=== PATIENT | female | born 1950 | race Caucasian/White ===

== ENCOUNTER 2017-12-13 16:52 | Emergency (ER) | payer MEDICARE ==
[~2017-12-13] VITALS: Ht 149.9 cm; Wt 81.8 kg
[2017-12-13 16:55] VITALS: Ht 149.9 cm; Wt 81.8 kg
[2017-12-13] MEDS ORDERED: CATAPRES0.2 MG PO (17:03)
[2017-12-13] MEDS ORDERED: PRINIVIL20 MG (17:03)
[2017-12-13] MEDS ORDERED: SYMBICORT 16010.2 GM INH (17:04)
[2017-12-13] MEDS ORDERED: ZESTRIL20 MG PO (17:04)
[2017-12-13 17:28] LABS: BASOPHILS 0.4 % (0-2); EOSINOPHILS 1.5 % (0-7); HEMATOCRIT 46.1 % (36.0-48.0); HEMOGLOBIN 15.6 g/dL (12-16); IMMATURE GRANULOCYTES 0.4 % (0-5); LYMPHOCYTES 14.9 % (15-50); MCH 30.2 pg (26.0-34.0); MCHC 33.8 g/dL (31.0-37.0); MCV 89.2 fL (80.0-100.0); MEAN PLATELET VOLUME 10.9 fL (7.4-10.4); MONOCYTES 6.1 % (2-11); NEUTROPHILS 76.7 % (40-80); PLATELET COUNT 233 10x3/uL (130-400); RBC 5.17 10x6/uL (4.00-5.40); RDW 15.5 % (11.5-14.5); WBC 10.8 10x3/uL (4.8-10.8)
[2017-12-13 17:46] LABS: ALBUMIN 3.1 g/dL (3.4-5.0); ANION GAP 9.7 mmol/L (8-16); BILIRUBIN - TOTAL 0.41 mg/dL (0.2-1.3); CALCIUM 10.3 mg/dL (8.5-10.1); CARBON DIOXIDE 30.4 mmol/L (21.0-32.0); POTASSIUM - SERUM 4.1 mmol/L (3.5-5.1); PROTEIN - SERUM 7.5 g/dL (6.4-8.2)
[2017-12-13 18:59] LABS: APPEARANCE HAZY (CLEAR); COLOR DK YELLOW (YELLOW); GLUCOSE NEGATIVE (NEGATIVE); KETONE NEGATIVE (NEGATIVE); NITRITE POSITIVE (NEGATIVE); PROTEIN TRACE mg/dL (NEGATIVE)
[2017-12-13 19:00] LABS: BILIRUBIN NEGATIVE (NEGATIVE); UROBILINOGEN NORMAL (NORMAL); WHITE CELLS - URINE 25-50 /hpf (0-5)
[2017-12-13 19:01] LABS: BACTERIA MANY /hpf (NONE SEEN); RED CELLS - URINE 0-5 /hpf (0-5)
[2017-12-13] MEDS ORDERED: PHENERGAN25 M1 PO (20:15)
[2017-12-13] MEDS ORDERED: TYLENOL W/CODEI1 TAB PO (20:15)
[2017-12-13] MEDS ORDERED: MACROBID100 MG PO (20:15)
[2017-12-13 21:03] VITALS: BP 141/57
== END 2017-12-13 21:04 | disposition home or self-care (01) ==
LOC: D.ER 16:52
PROVIDERS: Emergency Medicine
DX: N39.0 Urinary tract infection, site not specified (principal); R10.9 Unspecified abdominal pain; E11.9 Type 2 diabetes mellitus without complications; I10 Essential (primary) hypertension; J44.9 Chronic obstructive pulmonary disease, unspecified; F17.200 Nicotine dependence, unspecified, uncomplicated

== ENCOUNTER 2020-05-07 18:24 | Emergency (ER) | payer MEDICARE, BC ==
[~2020-05-07] VITALS: Ht 149.9 cm; Wt 113.6 kg
[~2020-05-07 18:24] MED LIST: CATAPRES0.2 MG PO; MACROBID100 MG PO; PHENERGAN25 M1 PO; PRINIVIL20 MG; SYMBICORT 16010.2 GM INH; TYLENOL W/CODEI1 TAB PO; ZESTRIL20 MG PO
[2020-05-07 18:29] VITALS: Ht 149.9 cm; Wt 113.6 kg
[2020-05-07 18:52] LABS: BASOPHILS 0.3 % (0-2); EOSINOPHILS 2.9 % (0-7); HEMATOCRIT 36.5 % (36.0-48.0); HEMOGLOBIN 11.4 g/dL (12-16); IMMATURE GRANULOCYTES 0.2 % (0-5); LYMPHOCYTE ABS# 2.14 10x3/uL (1.18-3.74); LYMPHOCYTES 24.3 % (15-50); MCH 25.3 pg (26.0-34.0); MCHC 31.2 g/dL (31.0-37.0); MCV 81.1 fL (80.0-100.0); MEAN PLATELET VOLUME 10.2 fL (7.4-10.4); MONOCYTES 6.8 % (2-11); NEUTROPHIL ABS# 5.77 10x3/uL (1.56-6.13); NEUTROPHILS 65.5 % (40-80); PLATELET COUNT 275 10x3/uL (130-400); RDW 17.4 % (11.5-14.5); WBC 8.8 10x3/uL (4.8-10.8)
[2020-05-07 19:09] LABS: ANION GAP 11.4 mmol/L (8-16); CALCIUM 9.3 mg/dL (8.5-10.1); CARBON DIOXIDE 26.4 mmol/L (21.0-32.0); CREATININE - SERUM 1.1 mg/dL (0.6-1.3); POTASSIUM - SERUM 3.8 mmol/L (3.5-5.1)
[2020-05-07 19:16] LABS: ALBUMIN 2.5 g/dL (3.4-5.0); BILIRUBIN - TOTAL 0.35 mg/dL (0.2-1.3); PROTEIN - SERUM 6.5 g/dL (6.4-8.2)
[2020-05-07 20:30] LABS: BILIRUBIN NEGATIVE (NEGATIVE); KETONE NEGATIVE (NEGATIVE); NITRITE NEGATIVE (NEGATIVE); UROBILINOGEN NORMAL mg/dL (< 2)
[2020-05-07 20:32] LABS: AMORPHOUS SEDIMENT <1+ LPF (NONE SEEN); BACTERIA FEW HPF (NONE SEEN); SQUAMOUS EPITHELIAL 0-5 HPF (0-4); WHITE CELLS - URINE 0-5 HPF (0-4)
[2020-05-07 20:54] VITALS: BP 148/72
[2020-05-08] MEDS ORDERED: HYDROCODON-ACE1 EA10 PO (21:10)
[2020-05-09 11:53] VITALS: Ht 149.9 cm; Wt 113.6 kg
== END 2020-05-07 21:00 | disposition home or self-care (01) ==
LOC: D.ER 18:24
PROVIDERS: Family Medicine
DX: N88.9 Noninflammatory disorder of cervix uteri, unspecified (principal); N95.0 Postmenopausal bleeding; Z86.73 Personal history of transient ischemic attack (TIA), and cerebral infarction without residual deficits; E11.9 Type 2 diabetes mellitus without complications; I10 Essential (primary) hypertension; J44.9 Chronic obstructive pulmonary disease, unspecified; Z72.0 Tobacco use

== ENCOUNTER 2020-05-08 18:34 | Emergency (ER) | payer MEDICARE, BC ==
[~2020-05-08] VITALS: Ht 152.4 cm; Wt 95.5 kg
[2020-05-08 18:52] VITALS: Ht 152.4 cm; Wt 95.5 kg
[2020-05-08 19:21] LABS: BASOPHILS 0.6 % (0-2); EOSINOPHILS 2.9 % (0-7); HEMATOCRIT 34.1 % (36.0-48.0); HEMOGLOBIN 10.6 g/dL (12-16); IMMATURE GRANULOCYTES 0.1 % (0-5); LYMPHOCYTE ABS# 2.85 10x3/uL (1.18-3.74); MCH 25.3 pg (26.0-34.0); MCHC 31.1 g/dL (31.0-37.0); MCV 81.4 fL (80.0-100.0); MONOCYTES 6.8 % (2-11); NEUTROPHIL ABS# 5.66 10x3/uL (1.56-6.13); NEUTROPHILS 59.6 % (40-80); PLATELET COUNT 297 10x3/uL (130-400); RBC 4.19 10x6/uL (4.00-5.40); RDW 17.4 % (11.5-14.5); WBC 9.5 10x3/uL (4.8-10.8)
[2020-05-08 19:28] LABS: ANION GAP 10.9 mmol/L (8-16); CALCIUM 9.1 mg/dL (8.5-10.1); CREATININE - SERUM 1.1 mg/dL (0.6-1.3); POTASSIUM - SERUM 3.9 mmol/L (3.5-5.1)
[2020-05-08 19:34] LABS: ALBUMIN 2.5 g/dL (3.4-5.0); BILIRUBIN - TOTAL 0.27 mg/dL (0.2-1.3); PROTEIN - SERUM 6.5 g/dL (6.4-8.2)
[2020-05-08] MEDS ORDERED: HYDROCODON-ACE1 EA10 PO (21:10)
[2020-05-08 21:14] VITALS: BP 180/61
[2020-05-09 11:53] VITALS: Ht 152.4 cm; Wt 95.5 kg
== END 2020-05-08 21:34 | disposition home or self-care (01) ==
LOC: D.ER 18:34
PROVIDERS: Family Medicine
DX: N93.9 Abnormal uterine and vaginal bleeding, unspecified (principal); R10.2 Pelvic and perineal pain; I10 Essential (primary) hypertension; E11.9 Type 2 diabetes mellitus without complications; J44.9 Chronic obstructive pulmonary disease, unspecified

== ENCOUNTER 2020-05-09 10:36 | Day surgery (SDC) | payer MEDICARE, BC ==
[~2020-05-09] VITALS: Ht 154.9 cm; Wt 93.9 kg
[~2020-05-09 10:36] MED LIST changes: +HYDROCODON-ACE1 EA10 PO
[2020-05-09 11:19] LABS: BASOPHILS 0.2 % (0-2); EOSINOPHILS 0.1 % (0-7); HEMATOCRIT 30.5 % (36.0-48.0); HEMOGLOBIN 9.3 g/dL (12-16); IMMATURE GRANULOCYTES 0.3 % (0-5); LYMPHOCYTES 13.5 % (15-50); MCH 24.9 pg (26.0-34.0); MCHC 30.5 g/dL (31.0-37.0); MCV 81.6 fL (80.0-100.0); MEAN PLATELET VOLUME 9.6 fL (7.4-10.4); MONOCYTES 4.8 % (2-11); NEUTROPHIL ABS# 12.02 10x3/uL (1.56-6.13); NEUTROPHILS 81.1 % (40-80); PLATELET COUNT 293 10x3/uL (130-400); RBC 3.74 10x6/uL (4.00-5.40); RDW 17.4 % (11.5-14.5); WBC 14.8 10x3/uL (4.8-10.8)
[2020-05-09 11:30] LABS: ANION GAP 12.8 mmol/L (8-16); CALCIUM 9.2 mg/dL (8.5-10.1); CARBON DIOXIDE 26.6 mmol/L (21.0-32.0); CREATININE - SERUM 1.2 mg/dL (0.6-1.3); POTASSIUM - SERUM 4.4 mmol/L (3.5-5.1)
[2020-05-09 11:53] VITALS: BP 136/62; Ht 154.9 cm; Wt 93.9 kg
--- NOTE | 2020-05-09 13:40 | NUR ---
[address] [facility]
--- NOTE | 2020-05-09 13:48 | NUR ---
1340 SUDDEN ONSET OF NAUSEA, WITHOUT EMESIS, COOL CLOTH TO FORHEAD, EMESIS BAG GIVEN, ALCHOHOL SWAB TO SNIFF. WAVE LEFT PT. FAMILY AT SIDE.
--- NOTE | 2020-05-09 14:19 | NUR ---
1415 STATES I AM READY TO GO HOME, STANDING SIPPING WATER.
--- NOTE | 2020-05-11 20:50 | OP ---
PATIENT NAME: JAVED SAUER MEDICAL RECORD: [id number] :48 LOCATION:D.OPS ADMISSION DATE: SURGEON: ЕЛЕНА RUTH DO DATE OF OPERATION: 05/09/2020 PREOPERATIVE DIAGNOSIS: Postmenopausal bleeding, hemorrhage. POSTOPERATIVE DIAGNOSIS: Postmenopausal bleeding, hemorrhage. PRIMARY SURGEON: Елена Ruth DO ANESTHESIA: LMA. PROCEDURE: Hysteroscopy, dilation and curettage. FINDINGS: Sounded to 8 cm, large amount of polypoid endometrial tissue and polyps. SPECIMEN: Endometrial curettings. ESTIMATED BLOOD LOSS: Less than 20 mL. IV FLUIDS: Per anesthesia. COMPLICATIONS: None. The patient was seen in the office where very heavy bleeding was noted, about 50 mL of blood and clots evacuated but due to heavy bleeding from os, could not get adeqaute visualization to perform EMB in office. Due to amount of blood as well as inability to do procedure in office safely, recommended emergent D&C hysteroscopy. Risks of surgery including bleeding, pain, infection, damage to surrounding structures, perforation reviewed. The patient expressed understanding. Consent signed in the office and sent to preoperative area. The patient seen in preoperative area and all questions answered. DESCRIPTION OF PROCEDURE: The patient was taken to the OR where anesthesia was administered and found to be adequate. Prior to prepping, 2 large blood clots came out about 100cc. She was prepped and draped in normal sterile fashion in dorsal lithotomy position. [place] speculum was placed in the vagina. Anterior lip of the cervix was grasped with a tenaculum. Cervix was dilated with Hegar dilators to accommodate a 5-mm hysteroscope. Uterus was sounded to 7 to 8 cm. Hysteroscope demonstrated a lot of fluffy appearing endometrial tissue and polypoid tissue with a copious amount of tissue overall. Hysteroscope was removed. A small sharp curette was then inserted and curettage in a clockwise fashion times 2 until a gritty feeling was noted. Large amount of tissue on endometrial curettage. After curettage bleeding at os was minimal, tenaculum removed. Silver nitrate applied. Monsel's solution applied with hemostasis and instruments were removed. All lap, sponge and needle counts correct times two. The patient was taken to the recovery room in stable condition TRANSINT:[id number] Voice Confirmation ID: [id number] DOCUMENT ID: [id number] OPERATIVE REPORT [id number] JAVED SAUER SUCHITA DO at 2050 CC: [id number] DICTATION DATE: 05/10/20 1213 LANDSCAPE PHOTOGRAPHER: 05/10/20 1702 [facility] 05/09/20 [facility] [address] [id number]
== END 2020-05-09 14:35 | disposition home or self-care (01) ==
LOC: D.OPS 10:36
PROVIDERS: ATTEND Obstetrics & Gynecology
DX: N95.0 Postmenopausal bleeding (principal); R93.89 Abnormal findings on diagnostic imaging of other specified body structures